=== PATIENT | female | born 2000 | race Asian ===

== ENCOUNTER 2023-12-05 09:25 | Outpatient (REF) | payer OTHER, SELFPAY ==
--- NOTE | ~2023-12-05 | US_ITS ---
EXAMINATION: US PELVIS CLINICAL INFORMATION: Menorrhagia of one month's duration; the last menstrual period is not specified. COMPARISON: None available. TECHNIQUE: Ultrasound of the pelvis is performed using both transabdominal and transvaginal transducers along with Doppler. Transvaginal imaging is performed due to inadequate visualization transabdominally. FINDINGS: Uterus: The uterus is anteverted and measures 8.3 x 3.5 x 4.2 cm. The double wall endometrial thickness is 3 mm. The uterus is smooth in contour and has normal myometrial echogenicity. No visible fibroid. Adnexa: Both ovaries are visualized. There is normal color flow to the adnexa. There is no ovarian torsion. There is no pelvic ascites or fluid collection. Right ovary measures 2.3 x 2.8 x 2.6 cm, volume 5.5 mL. Left ovary measures 2.0 x 2.6 x 1.7 cm, volume 6.5 mL. US/US pelvic and transvaginal IMPRESSION: Unremarkable examination.
== END 2023-12-05 09:26 | disposition home or self-care (01) ==
LOC: HO.UMASIMG 09:25
PROVIDERS: Visit Provider Family Medicine
DX: N92.0 Excessive and frequent menstruation with regular cycle (principal)
CPT/HCPCS: 76830; 76856